=== PATIENT | female | born 1965 | race Caucasian/White ===

== ENCOUNTER 2017-04-03 02:28 | Day surgery (SDC) | payer BC ==
[~2017-04-03] VITALS: Ht 170.2 cm; Wt 86.6 kg
[~2017-04-03 02:28] MED LIST: BACL-1 PO; HYDR-385 PO; LEVO100T95 PO; LEVO88TA43 PO; MELO-207 PO
[2017-04-03] MEDS ORDERED: PROPOFOL EMUL(*) 10MG/ML 20 ML 20 ML ONE ×2 (06:48→11:35)
[2017-04-03 08:56] VITALS: BP 133/89
[2017-04-03] MEDS ORDERED: MIDAZOLAM 2 MG/2 ML VIAL IVP PRN (09:10)
[2017-04-03] MEDS ORDERED: NORMOSOL R SOLN(*) 1000 ML BAG 1,000 ML IV PRN (09:10)
[2017-04-03] MEDS ORDERED: LIDOCAINE/SOD BICARB 8.4% SYR ID ONE (09:10)
[2017-04-03 11:50] VITALS: BP 102/70
--- NOTE | 2017-04-03 11:53 | Short(Outpt) Discharge Summary ---
Discharge Summary Reason for Hosp/Final Diag: (1) Colon cancer screening Status: Chronic Hospital Course & Plan: Colonoscopy completed without any problems. Departure Discharge to: Home, Self Care Discharge Instructions Home Meds Active Scripts Levothyroxine Sodium (SYNTHROID) 100 Mcg Tablet, 1 TAB PO QODAY, #45 TAB 3 Refills Prov:NOEMI SCHWARZ MD 07/29/16 Levothyroxine Sodium (SYNTHROID) 88 Mcg Tablet, 1 TAB PO QODAY, #45 TAB 3 Refills Prov:NOEMI SCHWARZ MD 07/29/16 Discontinued Scripts Baclofen (BACLOFEN) 10 Mg Tablet, 10 MG PO TID, #35 TAB Prov:NOEMI SCHWARZ MD 03/20/17 Diet: Regular Activity: As Tolerated Special Instructions: Your colonoscopy was completed without problems and your prep was excellent (Good Job!!). I didn't find any cancers, polyps or other abnormalities. I recommend that your next colonoscopy be in 10 years. SUSANNE PERRY MD Apr 03, 2017 11:53
[2017-04-03 12:01] VITALS: BP 87/60
[2017-04-03 12:25] VITALS: BP 112/81
[2017-04-03 12:26] VITALS: BP 117/78
== END 2017-04-03 13:00 ==
LOC: OR 02:28
PROVIDERS: ATTEND Surgery
DX: Z12.11 Encounter for screening for malignant neoplasm of colon (principal)
CPT/HCPCS: 45378; J2704

== ENCOUNTER → 2017-08-24 | Outpatient (CLI) | payer BC | LOC: LAB 13:20 | PROVIDERS: ATTEND Emergency Medicine | DX: E03.9 Hypothyroidism, unspecified (principal) | CPT/HCPCS: 36415; 84443 ==

== ENCOUNTER → 2017-09-01 | Outpatient (CLI) | payer BC ==
[~2017-09-01] MED LIST changes: +DIA5 PO; +GADOBENATE 529MG/1ML 15ML VIAL IVP ONE
--- NOTE | 2017-09-01 09:59 | RADIOLOGY IMAGING REPORT ---
FACILITY: [facility] PATIENT NAME: Mini Bobo : 1965 MR: [id number] V: [id number] EXAM DATE: ORDERING PHYSICIAN: NOEMI SCHWARZ TECHNOLOGIST: Location: [facility] - [place] Patient: Mini Bobo : 1965 Visit/Account:[id number] Date of Sevice: 09/01/2017 BRAIN W W/O CONTRAST Provided history: tremor Additional pertinent history: none TECHNIQUE: Multiplanar multisequence brain MRI was performed without and with intravenous contrast Contrast dose: 15 mL of MultiHance. Additional focused sequences: none COMPARISON STUDIES: No relevant priors FINDINGS: Brain volume: Normal Acute ischemia: None Chronic cortical and ganglionic ischemia: none significant Hemorrhage: None Masses / edema: None. Minor centrally draining developmental venous anomaly in the right frontal lo be, not significant. White matter lesions : There are estimated 20-25 nonspecific deep and peripheral T2 hyperintensities involving both hemispheres with relative sparing of the temporal lobes. Brainstem and cerebellum ne gative. Periventricular white matter normal. Vessels: Normal Extra-axial: None Calvarium / scalp: Negative Skull base / infratemporal fossa: negative Visualized sinuses / orbits / upper neck: Mild mucosal thickening bilateral ethmoid air cells. No a ir-fluid levels. Cerebellar tonsils in normal position. IMPRESSION: 1. No evidence of hemorrhage, intracranial mass or acute ischemia. 2. White matter changes, more than is typical for age. These are not typical of MS. Consider vascul itis or small vessel disease on the basis of long-standing systemic factors such as hypertension, sammie betes, obesity, hyperlipidemia, smoking, etc. Report Dictated By: Naseem Palacios MD at 09/01/2017 9:37 AM Report E-Signed By: Naseem Palacios MD at 09/01/2017 9:41 AM WSN:[id number]
== END ==
LOC: MRI 02:10
PROVIDERS: ATTEND Emergency Medicine
DX: R90.82 White matter disease, unspecified (principal)
CPT/HCPCS: 70553; A9577

== ENCOUNTER → 2017-09-03 | Outpatient (CLI) | payer BC ==
[~2017-09-03] MED LIST changes: -GADOBENATE 529MG/1ML 15ML VIAL IVP ONE
[2017-09-03 07:50] LABS: PLATELET COUNT, AUTOMATED 255 K/uL (150-450)
== END ==
LOC: LAB 07:19
PROVIDERS: ATTEND Emergency Medicine
DX: R93.0 Abnormal findings on diagnostic imaging of skull and head, not elsewhere classified (principal)
CPT/HCPCS: 36415; 81001; 82040; 82247; 82310; 82374; 82435; 82565; 82595; 82784; 82947; 84075; 84132; 84155; 84160; 84165; 84295; 84450; 84460; 84520; 85025; 85610; 85613; 85651; 85730; 86038; 86140; 86147; 86160; 86225

== ENCOUNTER → 2017-11-12 | Outpatient (CLI) | payer BC | LOC: LAB 15:47 | PROVIDERS: ATTEND Psychiatry & Neurology Neurology | DX: I63.9 Cerebral infarction, unspecified (principal); R93.0 Abnormal findings on diagnostic imaging of skull and head, not elsewhere classified | CPT/HCPCS: 36415; 83090; 83921; 85651 ==

== ENCOUNTER 2017-11-18 07:52 | Outpatient (RCR) | payer BC ==
--- NOTE | 2017-11-19 09:54 | RADIOLOGY IMAGING REPORT ---
FACILITY: [facility] - [place] PATIENT NAME: Mini Bobo : 1965 MR: [id number] V: [id number] EXAM DATE: ORDERING PHYSICIAN: ARNOLDO CAMPOVERDE TECHNOLOGIST: Location: [facility] Patient: Mini Bobo : 1965 Visit/Account:[id number] Date of Sevice: 11/19/2017 EXAMINATION: CTA Neck with intravenous contrast CTA Head with intravenous contrast HISTORY: Chronic white matter changes in the brain. TECHNIQUE: Overlapping thin sections were obtained during a bolus of IV contrast from the aortic ar ch through the vertex. Reconstruction of the source data set includes multiplanar 2D in the sagittal and coronal planes, and 3D coronal thin slab MIP series. Vice Chairman images have been stored on PA CS. Stenosis of the internal carotid arteries are calculated using NASCET criteria. One of the following dose optimization techniques was utilized in the performance of this exam: Autom ated exposure control; adjustment of the mA and/or kV according to the patient's size; or use of an i terative reconstruction technique. Specific details can be referenced in the facility's radiology C T exam operational policy. CONTRAST: 75 mL of IV Isovue-370 COMPARISON: Brain MRI dated 09/01/2017. FINDINGS: Aortic arch and great vessels: Negative. Right CCA / ICA: Negative. Left CCA / ICA: Minimal calcified and noncalcified plaque at the origin of the internal carotid art maude. No significant stenosis. Vertebro-basilar: Negative. [place]: Negative. JENNIFER circulation: Negative. MCA circulation: Negative. ELIGIBILITY CLERK circulation: Negative. Additional non-angiographic findings: Multilevel degenerative disc disease and facet hypertrophy in the cervical spine. IMPRESSION: 1. Minimal calcified and noncalcified plaque at the origin of the left internal carotid with no signi ficant stenosis. Otherwise normal CTA of the head and neck. 2. Multilevel degenerative disc disease and facet hypertrophy in the cervical spine. Report Dictated By: Milan Calixto MD at 11/19/2017 9:22 AM Report E-Signed By: Milan Calixto MD at 11/19/2017 9:30 AM WSN:[email or web address]
--- NOTE | 2017-11-19 09:55 | RADIOLOGY IMAGING REPORT ---
FACILITY: [facility] PATIENT NAME: Mini Bobo : 1965 MR: [id number] V: [id number] EXAM DATE: ORDERING PHYSICIAN: ARNOLDO CAMPOVERDE TECHNOLOGIST: Location: [facility] Patient: Mini Bobo : 1965 Visit/Account:[id number] Date of Sevice: 11/19/2017 EXAMINATION: CTA Neck with intravenous contrast CTA Head with intravenous contrast HISTORY: Chronic white matter changes in the brain. TECHNIQUE: Overlapping thin sections were obtained during a bolus of IV contrast from the aortic ar ch through the vertex. Reconstruction of the source data set includes multiplanar 2D in the sagittal and coronal planes, and 3D coronal thin slab MIP series. Reporting Consultant images have been stored on PA CS. Stenosis of the internal carotid arteries are calculated using NASCET criteria. One of the following dose optimization techniques was utilized in the performance of this exam: Autom ated exposure control; adjustment of the mA and/or kV according to the patient's size; or use of an i terative reconstruction technique. Specific details can be referenced in the facility's radiology C T exam operational policy. CONTRAST: 75 mL of IV Isovue-370 COMPARISON: Brain MRI dated 09/01/2017. FINDINGS: Aortic arch and great vessels: Negative. Right CCA / ICA: Negative. Left CCA / ICA: Minimal calcified and noncalcified plaque at the origin of the internal carotid art maude. No significant stenosis. Vertebro-basilar: Negative. [place]: Negative. JENNIFER circulation: Negative. MCA circulation: Negative. GENERAL MAINTENANCE HELPER circulation: Negative. Additional non-angiographic findings: Multilevel degenerative disc disease and facet hypertrophy in the cervical spine. IMPRESSION: 1. Minimal calcified and noncalcified plaque at the origin of the left internal carotid with no signi ficant stenosis. Otherwise normal CTA of the head and neck. 2. Multilevel degenerative disc disease and facet hypertrophy in the cervical spine. Report Dictated By: Milan Calixto MD at 11/19/2017 9:22 AM Report E-Signed By: Milan Calixto MD at 11/19/2017 9:30 AM WSN:[email or web address]
== END 2017-11-19 18:00 | disposition home or self-care (01) ==
LOC: EDSTATUS 07:52 → US 07:52
PROVIDERS: ATTEND Psychiatry & Neurology Neurology
DX: I63.9 Cerebral infarction, unspecified (principal); R93.0 Abnormal findings on diagnostic imaging of skull and head, not elsewhere classified
CPT/HCPCS: 70496; 70498; 93306; Q9967

== ENCOUNTER → 2017-11-25 | Outpatient (CLI) | payer BC ==
[~2017-11-25] MED LIST changes: +GADOBENATE 529MG/1ML 15ML VIAL IVP ONE; +IOPAMIDOL 76% 75 ML INFUS BTL 75 ML ONE; +NS 0.9% 25 ML BAG 50 ML ONE
--- NOTE | 2017-11-25 10:05 | RADIOLOGY IMAGING REPORT ---
FACILITY: [facility] - [place] PATIENT NAME: Mini Bobo : 1965 MR: [id number] V: [id number] EXAM DATE: ORDERING PHYSICIAN: ARNOLDO CAMPOVERDE TECHNOLOGIST: Location: [facility] Patient: Mini Bobo : 1965 Visit/Account:[id number] Date of Sevice: 11/25/2017 EXAMINATION: MRI cervical spine without IV contrast MRI cervical spine with IV contrast HISTORY: Muscle spasm of back. COMPARISON: None. TECHNIQUE: Multi-planar, multi-sequence cervical spine MRI was performed before and after IV contras t. CONTRAST: 15 mL of IV MultiHance gadolinium. FINDINGS: Alignment: There is straightening of the cervical spine without focal listhesis. Vertebral marrow signal: The marrow is mildly T1 hypointense throughout. There is a benign hemangioma in T2. Cranio-cervical junction: Negative. Visualized posterior fossa: Negative. Soft tissues: Negative. Cervical cord: Negative. Enhancement pattern: Mild diffuse marrow enhancement and patchy enhancement of the hemangioma in T2. Disc spaces: C1-2: Negative. C2-3: Negative. C3-4: Broad-based posterior osteophyte disc complex and bilateral uncovertebral hypertrophy. Mild kaya tral canal stenosis and moderate to severe bilateral foraminal stenosis. C4-5: Broad-based posterior osteophyte disc complex eccentric to the right and bilateral uncovertebra l hypertrophy. Mild central canal stenosis, mild left and severe right foraminal stenosis. C5-6: Mild disc space narrowing with a broad-based posterior osteophyte disc complex and bilateral un covertebral hypertrophy. There is severe central canal stenosis with mild flattening of the anterior aspect of the cervical cord. Severe bilateral foraminal stenosis. C6-7: Mild disc space narrowing with a broad-based posterior osteophyte disc complex eccentric to the left and bilateral uncovertebral hypertrophy. Mild central canal stenosis and severe left foraminal stenosis. C7-T1: Negative. Upper thoracic spine: Negative. IMPRESSION: 1. Degenerative disc disease, facet and uncovertebral arthropathy is worst at C5-6 where there is sev ere spinal stenosis and severe bilateral foraminal stenosis. Please see the findings for description of individual level disease. 2. Borderline T1 dark marrow with mild diffuse enhancement. This could be due to red marrow reconvers ion from chronic anemia. Infiltrative neoplasms including leukemia and lymphoma are in the differenti al. Laboratory correlation with CBC is recommended. Report Dictated By: Kirsten Tucker MD at 11/25/2017 9:55 AM Report E-Signed By: Kirsten Tucker MD at 11/25/2017 10:02 AM WSN:[email or web address]
== END ==
LOC: MRI 00:27
PROVIDERS: ATTEND Psychiatry & Neurology Neurology
DX: M50.322 Other cervical disc degeneration at C5-C6 level (principal)
CPT/HCPCS: 72156; A9577; Q9967

== ENCOUNTER → 2017-11-27 | Outpatient (CLI) | payer BC ==
[~2017-11-27] MED LIST changes: -IOPAMIDOL 76% 75 ML INFUS BTL 75 ML ONE; -NS 0.9% 25 ML BAG 50 ML ONE
--- NOTE | 2017-11-27 16:44 | RADIOLOGY IMAGING REPORT ---
FACILITY: [facility] [place] PATIENT NAME: Mini Bobo : 1965 MR: [id number] V: [id number] EXAM DATE: ORDERING PHYSICIAN: ARNOLDO CAMPOVERDE TECHNOLOGIST: Location: [facility] - [place] Patient: Mini Bobo : 1965 Visit/Account:[id number] Date of Sevice: 11/27/2017 EXAMINATION: MRI thoracic spine without IV contrast MRI thoracic spine with IV contrast HISTORY: Small vessel stroke, white matter abnormality of the brain MRI, muscle spasm of back. Mul tiple sclerosis? COMPARISON: Brain MRI from 09/01/2017 and cervical spine MRI from 11/25/2017. TECHNIQUE: Multi-planar, multi-sequence thoracic spine MRI was performed without and after IV contra st. CONTRAST: 15 mL of IV MultiHance gadolinium. FINDINGS: Alignment: Negative. Vertebral marrow signal: There are a few benign hemangiomata, the largest in T2. T1 signal in the th oracic vertebra is normal, and not as dark as on the cervical spine MRI. Paravertebral soft tissues: Negative. Thoracic cord: No focal cord signal abnormality or lesion. Conus: Negative, terminates at T12-L1. Enhancement: No abnormal enhancement. Disc spaces: Small left paracentral disc protrusions at T7-8 and T8-9, without significant central c anal or foraminal stenosis. IMPRESSION: 1. No thoracic cord lesion or abnormal enhancement, or evidence of demyelination. 2. Small left paracentral disc protrusions at T7-8 and T8-9. No significant spinal stenosis or fora tisha stenosis. Report Dictated By: Kirsten Tucker MD at 11/27/2017 4:29 PM Report E-Signed By: Kirsten Tucker MD at 11/27/2017 4:39 PM WSN:[id number]
== END ==
LOC: MRI 02:07
PROVIDERS: ATTEND Psychiatry & Neurology Neurology
DX: M62.830 Muscle spasm of back (principal); I63.9 Cerebral infarction, unspecified; R93.0 Abnormal findings on diagnostic imaging of skull and head, not elsewhere classified
CPT/HCPCS: 72157; A9577